=== PATIENT | male | born 1955 | race Caucasian/White ===

== ENCOUNTER 2019-12-12 16:26 | Emergency (ER) | payer OTHER ==
[~2019-12-12] VITALS: Ht 172.7 cm; Wt 110.2 kg
[~2019-12-12 16:26] MED LIST changes: -IBUP400 PO; -ONDA4ODT MM; -OXYC5 PO
[2019-12-12] MEDS ORDERED: IBUP400 PO (18:19)
[2019-12-12] MEDS ORDERED: OXYC5 PO (18:19)
[2019-12-12] MEDS ORDERED: ONDA4ODT MM (18:19)
== END 2019-12-12 18:29 | disposition home or self-care (01) ==
LOC: ER 16:26
DX: K85.20 Alcohol induced acute pancreatitis without necrosis or infection (principal); K52.9 Noninfective gastroenteritis and colitis, unspecified; Z87.891 Personal history of nicotine dependence
CPT/HCPCS: 99283

== ENCOUNTER → 2019-12-12 | Outpatient (CLI) | payer OTHER ==
[~2019-12-12] MED LIST: Adult Low Dose81 MG PO; CYCL10 PO; IBUP400 PO; LOSA50 PO; ONDA4ODT MM; OXYC5 PO; TRIA80TC TOP
[2019-12-12 16:31] LABS: Bilirubin, Urine Neg (Neg); Blood, Urine Neg (Neg); Glucose Qualitative, Urine Neg (Neg); Ketones, Urine Neg (Neg); Leukocyte Esterase, Urine Neg (Neg); Nitrite, Urine Neg (Neg); Protein, Urine Neg (Neg); Specific Gravity, Urine 1.005 (1.003-1.022); Urobilinogen, Urine NORM (Normal)
[2019-12-12 16:41] LABS: Appearance, Urine Clear (Clear); Color, Urine Pale Yellow (P-Yellow)
== END ==
LOC: LAB SHORT 15:40 → LAB 15:40
PROVIDERS: Nurse Practitioner Family
DX: R19.7 Diarrhea, unspecified (principal); R10.814 Left lower quadrant abdominal tenderness
CPT/HCPCS: 81003

== ENCOUNTER 2019-12-22 21:56 | Emergency (ER) | payer OTHER ==
[~2019-12-22] VITALS: Ht 172.7 cm; Wt 108.9 kg
[~2019-12-22 21:56] MED LIST changes: +IBUP400 PO; +ONDA4ODT MM; +OXYC5 PO
[2019-12-22 22:31] LABS: BASOPHILS ABSOLUTE AUTO 0.09 K/mm3 (0.00-0.23); BASOPHILS PERCENT AUTO 1 % (0-2); EOSINOPHILS PERCENT AUTO 2 % (0-6); Hematocrit 42.8 % (37.0-53.0); Hemoglobin 14.1 g/dL (13.5-17.5); IMMATURE GRAN ABSOLUTE AUTO 0.03 K/mm3 (0.00-0.10); IMMATURE GRAN PERCENT AUTO 0 % (0-1); LYMPHOCYTES ABSOLUTE AUTO 3.67 K/mm3 (0.84-5.20); LYMPHOCYTES PERCENT AUTO 40 % (21-46); MONOCYTES ABSOLUTE AUTO 0.87 K/mm3 (0.16-1.47); MONOCYTES PERCENT AUTO 9 % (4-13); Mean Corpuscular HGB 31.6 pg (26.0-34.0); Mean Corpuscular HGB Conc 32.9 g/dL (31.5-36.5); Mean Corpuscular Volume 96 fL (80-100); Mean Platelet Volume 9.6 fL (9.1-12.4); NEUTROPHILS ABSOLUTE AUTO 4.43 K/mm3 (1.96-9.15); NEUTROPHILS PERCENT AUTO 48 % (41-73); Platelet Count 215 K/mm3 (150-400); RDW Coefficient Variation 12.2 % (11.7-14.2); RDW Standard Deviation 43.5 fL (35.1-46.3); Red Blood Cell Count 4.46 M/mm3 (4.30-5.90); White Blood Cell Count 9.29 K/mm3 (4.00-11.30)
[2019-12-22 22:47] LABS: Alanine Aminotransfer (ALT/SGP 41 U/L (12-78); Albumin, Blood 3.7 g/dL (3.4-5.0); Alk Phos 67 U/L (50-136); Anion Gap 7 mmol/L (6-16); Aspartate Aminotrans (AST/SGOT 24 U/L (12-37); Bilirubin, Total 0.1 mg/dL (0.1-1.0); Blood Urea Nitrogen 20 mg/dL (8-24); Bun/Creatinine Ratio 19.4 (12.0-20.0); CO2, Blood 25 mmol/L (21-32); Calcium, Blood 8.7 mg/dL (8.5-10.1); Chloride, Blood 109 mmol/L (98-108); Creatinine, Blood 1.03 mg/dL (0.60-1.20); Globulin, Blood 3.6 g/dL (2.2-4.0); Glomerular Filtration Rate >60 (60-); Glucose, Blood 95 mg/dL (70-99); Potassium, Blood 4.2 mmol/L (3.5-5.5); Sodium, Blood 141 mmol/L (136-145); Total Protein, Blood 7.3 g/dL (6.4-8.2)
== END 2019-12-23 00:16 | disposition home or self-care (01) ==
LOC: ER 21:56
PROVIDERS: Emergency Medicine
DX: R74.8 Abnormal levels of other serum enzymes (principal); R10.12 Left upper quadrant pain; Z79.899 Other long term (current) drug therapy; Z87.891 Personal history of nicotine dependence
CPT/HCPCS: 74177; 80053; 83690; 85025; 99284-25; Q9967

== ENCOUNTER → 2019-12-24 | Outpatient (CLI) | payer OTHER ==
[2019-12-26 14:10] LABS: COTININE Negative ng/mL (Cutoff=300)
== END | disposition home or self-care (01) ==
LOC: LAB SHORT 08:00 → LAB 08:00 → LAB FUT 11-19 18:10
PROVIDERS: Neurological Surgery
DX: R74.8 Abnormal levels of other serum enzymes (principal); F17.290 Nicotine dependence, other tobacco product, uncomplicated

== ENCOUNTER 2023-09-05 21:07 | Emergency (ER) | payer OTHER ==
[~2023-09-05] VITALS: Ht 172.7 cm; Wt 108.9 kg
[~2023-09-05 21:07] MED LIST changes: +BETA.05TCA TOP; +CYCLOBENZAPRINE5 MG PO; +Norco 5-325 Ta1 EACH PO; +OXYC10TA19 PO; +Robaxin-750750 MG PO; +TADA10TA PO
[2023-09-06 00:49] LABS: BASOPHILS ABSOLUTE AUTO 0.06 K/mm3 (0.00-0.23); BASOPHILS PERCENT AUTO 1 % (0-2); EOSINOPHILS ABSOLUTE AUTO 0.12 K/mm3 (0.00-0.68); EOSINOPHILS PERCENT AUTO 1 % (0-6); Hematocrit 40.2 % (37.0-53.0); Hemoglobin 13.7 g/dL (13.5-17.5); IMMATURE GRAN ABSOLUTE AUTO 0.03 K/mm3 (0.00-0.10); IMMATURE GRAN PERCENT AUTO 0 % (0-1); LYMPHOCYTES ABSOLUTE AUTO 2.76 K/mm3 (0.84-5.20); LYMPHOCYTES PERCENT AUTO 26 % (21-46); MONOCYTES ABSOLUTE AUTO 0.93 K/mm3 (0.16-1.47); MONOCYTES PERCENT AUTO 9 % (4-13); Mean Corpuscular HGB 31.5 pg (26.0-34.0); Mean Corpuscular HGB Conc 34.1 g/dL (31.5-36.5); Mean Corpuscular Volume 92 fL (80-100); Mean Platelet Volume 9.3 fL (9.1-12.4); NEUTROPHILS PERCENT AUTO 63 % (41-73); Platelet Count 251 K/mm3 (150-400); RDW Coefficient Variation 12.6 % (11.7-14.2); Red Blood Cell Count 4.35 M/mm3 (4.30-5.90)
[2023-09-06 01:08] LABS: Source, Urine Clean Catch
[2023-09-06] MEDS ORDERED: OXYC5 (01:10)
[2023-09-06] MEDS ORDERED: CELEBREX200 MG PO (01:10)
[2023-09-06] MEDS ORDERED: TRAM50 (01:10)
[2023-09-06] MEDS ORDERED: NEURONTIN300 MG PO (01:11)
[2023-09-06] MEDS ORDERED: Lisinopril2.5 MG (01:11)
[2023-09-06] MEDS ORDERED: TREMFYA100 MG/11 SQ (01:11)
[2023-09-06 01:15] LABS: Albumin, Blood 3.6 g/dL (3.4-5.0); Albumin/Globulin Ratio 0.9 (0.8-1.8); Bilirubin, Total 0.3 mg/dL (0.1-1.0); Bun/Creatinine Ratio 16.6 (12.0-20.0); Calcium, Blood 8.8 mg/dL (8.5-10.1); Creatinine, Blood 0.9 mg/dL (0.60-1.20); Potassium, Blood 3.9 mmol/L (3.5-5.5); Total Protein, Blood 7.6 g/dL (6.4-8.2)
[2023-09-06 01:23] LABS: Bilirubin, Urine Neg (Neg); Blood, Urine 1+ (Neg); Glucose Qualitative, Urine Neg (Neg); Ketones, Urine 1+ (Neg); Leukocyte Esterase, Urine Neg (Neg); Nitrite, Urine Neg (Neg); Protein, Urine 1+ (Neg); Specific Gravity, Urine 1.025 (1.003-1.022); Urobilinogen, Urine NORM (Normal)
[2023-09-06 01:37] LABS: Appearance, Urine Clear (Clear); Color, Urine Yellow (P-Yellow)
[2023-09-06 01:39] LABS: Bacteria Rare /hpf; Red Blood Cells, Urine 0-2 /hpf (0-2); Squamous Epithelial Cells Rare /hpf (Few); White Blood Cells, Urine 0-2 /hpf (0-5)
[2023-09-06 04:00] VITALS: BP 147/84
[2023-09-06] MEDS ORDERED: XARELTO15 MG PO (05:29)
== END 2023-09-06 06:06 | disposition home or self-care (01) ==
LOC: ER 21:07
PROVIDERS: Emergency Medicine
DX: K59.00 Constipation, unspecified (principal); I26.99 Other pulmonary embolism without acute cor pulmonale; Z87.891 Personal history of nicotine dependence; Z79.899 Other long term (current) drug therapy
CPT/HCPCS: 36415; 74177; 80053; 81001; 83880; 84484; 85025; 93005; 93010; 96374-59; 99284-25; A9270; J2405; J7030; Q9967

== ENCOUNTER → 2023-09-08 | Outpatient (CLI) | payer OTHER ==
[~2023-09-08] MED LIST changes: +CELEBREX200 MG PO; +Lisinopril2.5 MG; +NEURONTIN300 MG PO; +OXYC5; +TRAM50; +TREMFYA100 MG/11 SQ; +XARELTO15 MG PO
[2023-09-08 17:04] LABS: Appearance, Urine Hazy (Clear); Bilirubin, Urine Neg (Neg); Blood, Urine 2+ (Neg); Color, Urine Yellow (P-Yellow); Glucose Qualitative, Urine Neg (Neg); Ketones, Urine Neg (Neg); Leukocyte Esterase, Urine Neg (Neg); Nitrite, Urine Neg (Neg); Protein, Urine 1+ (Neg); Urobilinogen, Urine NORM (Normal)
[2023-09-08 17:20] LABS: White Blood Cells, Urine 0-2 /hpf (0-5)
[2023-09-08 17:21] LABS: Squamous Epithelial Cells Few /hpf (Few)
[2023-09-08 17:22] LABS: Amorphous Light (0-Heavy); Bacteria Rare /hpf; Calcium Oxalate Crystals Mod /hpf; Hyaline Casts 0-2 /lpf (0-2); Mucus Light (0-Heavy)
== END | disposition home or self-care (01) ==
LOC: LAB 12:15 → LAB SHORT 12:15
PROVIDERS: Nurse Practitioner Family
DX: R82.90 Unspecified abnormal findings in urine (principal)
CPT/HCPCS: 81001; 87086

== ENCOUNTER 2023-12-12 06:59 | Day surgery (SDC) | payer OTHER ==
[~2023-12-12] VITALS: Ht 172.7 cm; Wt 110.3 kg
[~2023-12-12 06:59] MED LIST changes: +LISI5 PO; -Lisinopril2.5 MG; +OXAYDO5 M1 PO; -OXYC5; +Triamcinolone A15 G3 TOP; +propofoL 20 ML IV ONE; +propofoL 40 ML IV ONE
[2023-12-12] MEDS ORDERED: TALTZ AUTO80 MG/1 M1 (07:22)
[2023-12-12] MEDS ORDERED: Lactated Ringer's 1,000 ML IV ONE (07:50)
[2023-12-12] MEDS ORDERED: Midazolam HCL 1 MG/ML 5MLVIAL ONE (08:04)
[2023-12-12] MEDS ORDERED: FentaNYL Citrate 50 MCG/ML 2 ML Injection ONE (08:04)
[2023-12-12 09:01] VITALS: BP 110/81
== END 2023-12-12 09:09 | disposition home or self-care (01) ==
LOC: ORSCSDS 06:59
PROVIDERS: Surgery
PROC: 0DB78ZX Excision of Stomach, Pylorus, Via Natural or Artificial Opening Endoscopic, Diagnostic (ICD-10-PCS; principal; 2023-12-12 08:00)
PROC: 0DB48ZX Excision of Esophagogastric Junction, Via Natural or Artificial Opening Endoscopic, Diagnostic (ICD-10-PCS; principal; 2023-12-12 08:00)
PROC: 0DJD8ZZ Inspection of Lower Intestinal Tract, Via Natural or Artificial Opening Endoscopic (ICD-10-PCS; principal; 2023-12-12 08:00)
DX: Z12.11 Encounter for screening for malignant neoplasm of colon (principal); Z86.010 Personal history of colon polyps; R10.13 Epigastric pain; R11.0 Nausea; K57.30 Diverticulosis of large intestine without perforation or abscess without bleeding; K29.70 Gastritis, unspecified, without bleeding; I10 Essential (primary) hypertension; F17.210 Nicotine dependence, cigarettes, uncomplicated; E66.9 Obesity, unspecified; Z68.37 Body mass index [BMI] 37.0-37.9, adult; Z79.899 Other long term (current) drug therapy; Z86.711 Personal history of pulmonary embolism; Z79.01 Long term (current) use of anticoagulants
CPT/HCPCS: 43239; G0121; 88305; 88342; J2250; J2704; J3010

== ENCOUNTER → 2025-01-27 | Outpatient (CLI) | payer OTHER ==
[~2025-01-27] MED LIST changes: +TALTZ AUTO80 MG/1 M1; -propofoL 20 ML IV ONE; -propofoL 40 ML IV ONE
[2025-02-03 18:05] LABS: CORTISOL,SALIVA 0.23 ug/dL
== END ==
LOC: LAB 05:00 → LAB SHORT 05:00
PROVIDERS: Family Medicine
DX: Z13.220 Encounter for screening for lipoid disorders (principal); Z12.5 Encounter for screening for malignant neoplasm of prostate; R53.0 Neoplastic (malignant) related fatigue; R63.5 Abnormal weight gain
CPT/HCPCS: 82533

== ENCOUNTER → 2025-01-28 | Outpatient (CLI) | payer OTHER ==
[2025-02-03 18:05] LABS: CORTISOL,SALIVA 0.593 ug/dL
== END ==
LOC: LAB 05:00 → LAB SHORT 05:00 → LAB FUT 01-24 17:15
PROVIDERS: Nurse Practitioner Family
DX: Z13.220 Encounter for screening for lipoid disorders (principal); Z12.5 Encounter for screening for malignant neoplasm of prostate; R53.83 Other fatigue; R63.5 Abnormal weight gain
CPT/HCPCS: 82533